=== PATIENT | male | born 1980 | race Hispanic/Latino ===

== ENCOUNTER 2017-09-23 14:55 | Emergency (ER) | payer OTHER ==
[~2017-09-23] VITALS: Ht 175.3 cm; Wt 72.6 kg
[2017-09-23] MEDS ORDERED: BUPROPION HCL150 M2 PO (15:17)
[2017-09-23] MEDS ORDERED: NORVIR100 M1 PO (15:17)
[2017-09-23] MEDS ORDERED: CHANTIX1 EACH PO (15:17)
[2017-09-23] MEDS ORDERED: PREZISTA800 MG PO (15:18)
[2017-09-23] MEDS ORDERED: TRUVADA 200 MG1 EACH PO (15:18)
[2017-09-23] MEDS ORDERED: DICYCLOMINE HCL10 MG PO (15:18)
[2017-09-23] MEDS ORDERED: OXYCODONE HCL10 MG PO (15:18)
== END 2017-09-23 16:44 | disposition home or self-care (01) ==
LOC: ED 14:55
DX: N34.1 Nonspecific urethritis (principal); Z88.5 Allergy status to narcotic agent; Z79.899 Other long term (current) drug therapy
CPT/HCPCS: 81001; 86592; 87088; 87491; 87591; 96372; 99283; J0696

== ENCOUNTER 2017-11-23 03:32 | Emergency (ER) | payer OTHER ==
[~2017-11-23] VITALS: Ht 175.3 cm; Wt 72.6 kg
[~2017-11-23 03:32] MED LIST: BUPROPION HCL150 M2 PO; CHANTIX1 EACH PO; DICYCLOMINE HCL10 MG PO; NORVIR100 M1 PO; OXYCODONE HCL10 MG PO; PREZISTA800 MG PO; TRUVADA 200 MG1 EACH PO
== END 2017-11-23 04:30 | disposition home or self-care (01) ==
LOC: ED 03:32
PROC: 0HQGXZZ Repair Left Hand Skin, External Approach (ICD-10-PCS; principal; 2017-11-23)
DX: S51.812A Laceration without foreign body of left forearm, initial encounter (principal); F17.200 Nicotine dependence, unspecified, uncomplicated; Z90.49 Acquired absence of other specified parts of digestive tract; Z79.899 Other long term (current) drug therapy; W26.0XXA Contact with knife, initial encounter
CPT/HCPCS: 12002; 99282

== ENCOUNTER 2017-12-07 14:23 | Emergency (ER) | payer OTHER ==
[~2017-12-07] VITALS: Ht 175.3 cm; Wt 72.6 kg
== END 2017-12-07 14:42 | disposition home or self-care (01) ==
LOC: ED 14:23
DX: Z48.02 Encounter for removal of sutures (principal)

== ENCOUNTER 2018-11-28 11:15 | Emergency (ER) | payer OTHER ==
[~2018-11-28] VITALS: Ht 175.3 cm; Wt 72.6 kg
--- OUTSIDE RECORDS SUMMARY | 2018-11-28 11:18 | XMS ---
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 E.Attila VISIT COUNT (12 MO.) 2 DEBBIE Ghotra TOTAL 2 NOTE: Visits indicate total known visits. ED/UCC VISIT TRACKING (12 MO.) 11/28/2018 11:16 [facility] [place] TYPE: Emergency COMPLAINT: - COUGH 12/07/2017 14:23 [facility] [place] TYPE: Emergency COMPLAINT: - STICHES REMOVAL DIAGNOSES: - Encounter for removal of sutures - Procedure and treatment not carried out due to patient leaving prior to being seen by health care provider INPATIENT VISIT TRACKING (12 MO.) No inpatient visits to display in this time frame [email or web address]
== END 2018-11-28 11:30 | disposition home or self-care (01) ==
LOC: ED 11:15
DX: R05 Cough (principal)

== ENCOUNTER 2018-12-26 07:48 | Emergency (ER) | payer OTHER ==
[~2018-12-26] VITALS: Ht 175.3 cm; Wt 72.6 kg
--- OUTSIDE RECORDS SUMMARY | 2018-12-26 07:50 | XMS ---
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 Care History Medical/Surgical 12/03/2018 [facility] [place] - PATIENT CONTACT NUMBER IS NO LONGER IN SERVICE- PLEASE HAVE PATIENT PROVIDE UP TO DATE CONTACT NUMBER. - [facility] WILL SEND NO PCP LETTER TO PATIENT. E.D. VISIT COUNT (12 MO.) 2 [facility] TOTAL 2 NOTE: Visits indicate total known visits. ED/UCC VISIT TRACKING (12 MO.) 12/26/2018 07:48 [facility] OR TYPE: Emergency COMPLAINT: - FLU SYMPTOMS 11/28/2018 11:16 DEBBI[facility] [place] TYPE: Emergency COMPLAINT: - COUGH/MSE TO CLINIC DIAGNOSES: - Cough INPATIENT VISIT TRACKING (12 MO.) No inpatient visits to display in this time frame [id number]
[2018-12-26] MEDS ORDERED: OXYCODONE HCL10 MG PO (07:56)
[2018-12-26] MEDS ORDERED: TRIUMEQ TABLET1 EACH PO (07:56)
[2018-12-26] MEDS ORDERED: TAMIFLU75 MG PO (11:10)
[2018-12-26] MEDS ORDERED: WAL-PHED30 MG PO (11:10)
== END 2018-12-26 11:18 | disposition home or self-care (01) ==
LOC: ED 07:48
DX: J10.1 Influenza due to other identified influenza virus with other respiratory manifestations (principal); B20 Human immunodeficiency virus [HIV] disease; F17.200 Nicotine dependence, unspecified, uncomplicated; Z88.5 Allergy status to narcotic agent; Z79.899 Other long term (current) drug therapy
CPT/HCPCS: 71046; 87502; 99283-25